=== PATIENT | female | born 1980 | race Caucasian/White ===

== ENCOUNTER 2016-12-31 14:58 | Emergency (ER) | payer SELFPAY ==
[2016-12-31] MEDS ORDERED: ACETAMINOPHEN 325 MG TABLET PO ONE (15:53)
--- NOTE | 2016-12-31 15:53 | ER Document Report ---
ED Medical Screen (RME) - General Chief Complaint: Lower Abdominal Pain Stated Complaint: WEAKNESS Time seen by provider: 15:51 Mode of Arrival: Ambulatory Information source: Patient TRAVEL OUTSIDE OF THE [place] IN LAST 30 DAYS: No - HPI Patient complains to provider of: left sided pelvic pain, nausea, vomiting x 3 days, lightheaded Onset: Other - 3 days Onset/Duration: Gradual Quality of pain: Sharp, Stabbing Severity: Moderate Pain Level: 3 Associated Symptoms: Dizzy/lightheaded, Nausea, Vomiting. denies: Vaginal bleeding Exacerbated by: Denies Relieved by: Denies Notes: 12/31/16 15:52 36-year-old female presents to the emergency room complaining of left-sided sharp stabbing pelvic pain that's been going on for 3 days, associated with nausea and vomiting as well as lightheadedness, she reports a positive home test and a history of ectopic in the past requiring surgery , denies vaginal bleeding, she has been having some clear and whitish vaginal discharge - Related Data Allergies/Adverse Reactions: No Known Allergies Allergy (Verified 12/31/16 15:11) Past Medical History Renal/ Medical History: Denies: Hx Peritoneal Dialysis Physical Exam - Vital signs Vitals: Temp Pulse Resp BP Pulse Ox 98.4 F 88 16 123/66 99 12/31/16 15:13 12/31/16 15:13 12/31/16 15:13 12/31/16 15:13 12/31/16 15:13 Course - Vital Signs Vital signs: Temp Pulse Resp BP Pulse Ox 98.4 F 88 16 123/66 99 12/31/16 15:13 12/31/16 15:13 12/31/16 15:13 12/31/16 15:13 12/31/16 15:13
[2016-12-31 16:34] LABS: ABSOLUTE EOSINOPHILS # (AUTO) 0.1 10^3/uL (0.0-0.6); ABSOLUTE LYMPHOCYTES (AUTO) 1.9 10^3/uL (0.5-4.7); ABSOLUTE MONOCYTES (AUTO) 0.5 10^3/uL (0.1-1.4); ABSOLUTE NEUT (AUTO) 5.4 10^3/uL (1.7-8.2); BASOPHILS % (AUTO) 0.5 % (0-2); EOSINOPHILS % (AUTO) 1.5 % (0-6); HEMOGLOBIN 8.6 g/dL (12.0-15.5); HGB HCT DIFFERENCE -1.2; LYMPHOCYTES % (AUTO) 23.4 % (13-45); MEAN CORPUSCULAR HEMOGLOBIN 20.1 pg (27.0-33.4); MEAN CORPUSCULAR HGB CONC 31.9 g/dL (32.0-36.0); MONOCYTES % (AUTO) 6.9 % (3-13); RED BLOOD COUNT 4.28 10^6/uL (3.72-5.28); RED CELL DISTRIBUTION WIDTH 18.3 % (11.5-14.0); SEGMENTED NEUTROPHILS % (AUTO) 67.7 % (42-78)
[2016-12-31 16:38] LABS: APPEARANCE,URINE SLIGHTLY-CLOUDY; BILIRUBIN,URINE NEGATIVE (NEGATIVE); CALCIUM OXALATE CRYSTALS,URINE RARE /HPF; GLUCOSE, URINE NEGATIVE (NEGATIVE); KETONES,URINE NEGATIVE (NEGATIVE); LEUKOCYTE ESTERASE,URINE NEGATIVE (NEGATIVE); NITRITE,URINE NEGATIVE (NEGATIVE); PROTEIN,URINE NEGATIVE (NEGATIVE); URINE SPECIFIC GRAVITY 1.031
[2016-12-31 16:49] LABS: ALANINE AMINOTRANSFERASE 25 U/L (9-52); ALKALINE PHOSPHATASE 42 U/L (38-126); ANION GAP 11 (5-19); ASPARTATE AMINO TRANSFERASE 26 U/L (14-36); BILIRUBIN,DIRECT 0.1 mg/dL (0.0-0.4); BILIRUBIN,TOTAL 0.3 mg/dL (0.2-1.3); BLOOD UREA NITROGEN 10 mg/dL (7-20); CALCIUM 9.4 mg/dL (8.4-10.2); CARBON DIOXIDE 24 mmol/L (22-30); CHLORIDE 103 mmol/L (98-107); CREATININE RESULT 0.61 mg/dL (0.52-1.25); GLUCOSE 70 mg/dL (75-110); LIPASE 91.4 U/L (23-300); POTASSIUM 5.1 mmol/L (3.6-5.0); SODIUM 137.7 mmol/L (137-145); TOTAL PROTEIN 7.3 g/dL (6.3-8.2)
[2016-12-31 16:51] LABS: MEAN CORPUSCULAR VOLUME 63 fl (80-97)
[2016-12-31 17:08] LABS: ANISOCYTOSIS 1+; BURR CELLS SLIGHT; HYPOCHROMASIA SLIGHT; MICROCYTOSIS 3+; POIKILOCYTOSIS 1+; POLYCHROMASIA SLIGHT
[2016-12-31 17:09] LABS: OVALOCYTES 1+; ROULEAUX SLIGHT; SCHISTOCYTES SLIGHT; TEAR DROP CELLS SLIGHT
--- NOTE | 2016-12-31 18:48 | ER Document Report ---
ED GI/ - General Chief Complaint: Lower Abdominal Pain Stated Complaint: WEAKNESS Time seen by provider: 18:45 Mode of Arrival: Ambulatory Information source: Patient TRAVEL OUTSIDE OF THE [place] IN LAST 30 DAYS: No - HPI Patient complains to provider of: Pelvic pain, Onset: Last week Timing/Duration: Gradual Quality of pain: Achy, Cramping Severity at maximum: Moderate Location: Suprapubic, Pelvis Menstrual period history: Associated symptoms: Nausea Exacerbated by: Denies Relieved by: Denies Similar symptoms previously: Yes Recently seen / treated by doctor: No Notes: 12/31/16 19:09 Patient is a 36-year-old female who presents to the emergency room complaining of lower abdominal pain and cramping that's been going on for the past week or so, she reports positive home test, cannot recall when her last menstrual period was, reports some nausea, no vomiting, no diarrhea, no fever or chills, no urinary symptoms - Related Data Allergies/Adverse Reactions: No Known Allergies Allergy (Verified 12/31/16 15:11) Past Medical History - General Information source: Patient - Social History Smoking Status: Never Smoker Chew tobacco use (# tins/day): No Frequency of alcohol use: None Drug Abuse: None Family History: Reviewed & Not Pertinent Patient has suicidal ideation: No Patient has homicidal ideation: No Renal/ Medical History: Denies: Hx Peritoneal Dialysis Past Surgical History: Reports: Hx Gynecologic Surgery - Immunizations Hx Diphtheria, Pertussis, Tetanus Vaccination: No Review of Systems - Review of Systems Constitutional: No symptoms reported EENT: No symptoms reported Cardiovascular: No symptoms reported Respiratory: No symptoms reported Gastrointestinal: No symptoms reported Genitourinary: See HPI Female Genitourinary: See HPI Musculoskeletal: No symptoms reported Skin: No symptoms reported Hematologic/Lymphatic: No symptoms reported Neurological/Psychological: No symptoms reported -: Yes All other systems reviewed and negative Physical Exam - Vital signs Vitals: Temp Pulse Resp BP Pulse Ox 98.4 F 88 16 123/66 99 12/31/16 15:13 12/31/16 15:13 12/31/16 15:13 12/31/16 15:13 12/31/16 15:13 Interpretation: Normal - General General appearance: Appears well, Alert - HEENT Head: Normocephalic, Atraumatic Eyes: Normal Pupils: PERRL - Respiratory Respiratory status: No respiratory distress Chest status: Nontender Breath sounds: Normal Chest palpation: Normal - Cardiovascular Rhythm: Regular Heart sounds: Normal auscultation Murmur: No - Abdominal Inspection: Normal Distension: No distension Bowel sounds: Normal Tenderness: Nontender Organomegaly: No organomegaly - Back Back: Normal, Nontender - Extremities General upper extremity: Normal inspection, Nontender, Normal color, Normal ROM , Normal temperature General lower extremity: Normal inspection, Nontender, Normal color, Normal ROM , Normal temperature, Normal weight bearing. No: Uma's sign - Neurological Neuro grossly intact: Yes Cognition: Normal Orientation: AAOx4 Bridgette Coma Scale Eye Opening: Spontaneous Bridgette Coma Scale Verbal: Oriented Bridgette Coma Scale Motor: Obeys Commands Bridgette Coma Scale Total: 15 Speech: Normal Motor strength normal: LUE, RUE, LLE, RLE Sensory: Normal - Psychological Associated symptoms: Normal affect, Normal mood - Skin Skin Temperature: Warm Skin Moisture: Dry Skin Color: Normal Course - Re-evaluation Re-evalutation: 12/31/16 19:09 Lab and imaging findings were discussed patient at bedside which are consistent with positive IUP measuring 13 weeks and 5 days, patient was provided with a copy of her ultrasound report and advised to follow-up with MUD JACK OPERATOR within the next week or return if symptoms worsen, patient acknowledges understanding and agreement with this - Vital Signs Vital signs: Temp Pulse Resp BP Pulse Ox 98.4 F 78 16 135/56 H 100 12/31/16 15:13 12/31/16 19:04 12/31/16 19:04 12/31/16 19:04 12/31/16 19:04 - Laboratory Result Diagrams: 12/31/16 15:55 12/31/16 15:55 Laboratory results interpreted by me: 12/31/16 12/31/16 12/31/16 15:55 15:55 15:55 Hgb 8.6 L Hct 27.0 L MCV 63 L MCH 20.1 L MCHC 31.9 L RDW 18.3 H Potassium 5.1 H Glucose 70 L Beta HCG, Quant 31605.00 H Urine Blood SMALL H Urine Urobilinogen 4.0 H - Diagnostic Test Radiology reviewed: Image reviewed, Reports reviewed Discharge - Discharge Clinical Impression: Pelvic pain Qualifiers: Weeks of gestation: 13 weeks Qualified Code(s): Z3A.13 - 13 weeks gestation of Condition: Stable Disposition: HOME, SELF-CARE Instructions: [facility], Pelvic Pain in ([facility]), Pelvic Pain in and Round Ligament Pain ([facility]) Additional Instructions: Follow up with your primary care provider and MUD JACK OPERATOR in one to 2 days. Return to the emergency room immediately if symptoms worsen or any additional concerns. Forms: Return to Work
[2016-12-31 19:05] VITALS: BP 135/56
[2017-01-01 15:26] LABS: PATH REVIEW PATHOLOGIST REVIEWED
== END 2016-12-31 19:06 | disposition home or self-care (01) ==
LOC: ER 14:58
DX: O26.891 Other specified pregnancy related conditions, first trimester (principal); R10.2 Pelvic and perineal pain; R11.0 Nausea; Z3A.13 13 weeks gestation of pregnancy
CPT/HCPCS: 36415; 76817; 80053; 81001; 83690; 84702; 85025; 87086; 87088; 93976; 99284

== ENCOUNTER 2017-01-07 19:04 | Emergency (ER) | payer SELFPAY ==
--- NOTE | 2017-01-07 23:03 | ER Document Report ---
ED GI/ - General Chief Complaint: Pelvic Pain Stated Complaint: PELVIC PAIN Time seen by provider: 23:03 Mode of Arrival: Ambulatory Information source: Patient TRAVEL OUTSIDE OF THE [place] IN LAST 30 DAYS: No - HPI Patient complains to provider of: Abdominal pain, Pelvic pain, Onset: This morning Timing/Duration: Constant Quality of pain: Achy, Pressure Severity at maximum: Moderate Severity in ED: Moderate Pain Level: 3 Location: Epigastric, Right flank, Suprapubic Vaginal bleeding (Compared to normal period): None Menstrual period history: Associated symptoms: None Exacerbated by: Denies Relieved by: Denies Similar symptoms previously: Yes Recently seen / treated by doctor: Yes Notes: 01/08/17 00:20 Patient is a 37-year-old female presenting to the emergency room complaining of abdominal pain, patient reports being approximately 14 weeks , and in fact was seen in this emergency room exactly one week ago and diagnosed with and pelvic pain, at that time ultrasound showed her to be 13 weeks and 5 days, she has not yet received any care, she denies any vaginal bleeding, pain is pressure-like in nature, located in the epigastric and suprapubic regions as well as the right flank, it is constant, dull and achy, there is no intermittent cramping, no vaginal discharge, no nausea or vomiting, no fever chills - Related Data Allergies/Adverse Reactions: No Known Allergies Allergy (Verified 01/07/17 19:13) Past Medical History - General Information source: Patient - Social History Smoking Status: Unknown if Ever Smoked Family History: Reviewed & Not Pertinent Patient has suicidal ideation: No Patient has homicidal ideation: No Renal/ Medical History: Denies: Hx Peritoneal Dialysis Past Surgical History: Reports: Hx Gynecologic Surgery - Immunizations Hx Diphtheria, Pertussis, Tetanus Vaccination: No Review of Systems - Review of Systems Constitutional: No symptoms reported EENT: No symptoms reported Cardiovascular: No symptoms reported Respiratory: No symptoms reported Gastrointestinal: See HPI Genitourinary: No symptoms reported Female Genitourinary: See HPI Musculoskeletal: No symptoms reported Skin: No symptoms reported Hematologic/Lymphatic: No symptoms reported Neurological/Psychological: No symptoms reported -: Yes All other systems reviewed and negative Physical Exam - Vital signs Vitals: Temp Pulse Resp BP Pulse Ox 98.4 F 79 12 118/58 L 99 01/07/17 19:13 01/07/17 19:13 01/07/17 19:13 01/07/17 19:13 01/07/17 19:13 Interpretation: Normal - General General appearance: Appears well, Alert - HEENT Head: Normocephalic, Atraumatic Eyes: Normal Pupils: PERRL - Respiratory Respiratory status: No respiratory distress Chest status: Nontender Breath sounds: Normal Chest palpation: Normal - Cardiovascular Rhythm: Regular Heart sounds: Normal auscultation Murmur: No - Abdominal Inspection: Normal Distension: No distension Bowel sounds: Normal Tenderness: Tender - Epigastric and suprapubic Organomegaly: No organomegaly - Back Back: Normal, Nontender - Extremities General upper extremity: Normal inspection, Nontender, Normal color, Normal ROM , Normal temperature General lower extremity: Normal inspection, Nontender, Normal color, Normal ROM , Normal temperature, Normal weight bearing. No: Uma's sign - Neurological Neuro grossly intact: Yes Cognition: Normal Orientation: AAOx4 Weston Coma Scale Eye Opening: Spontaneous Bridgette Coma Scale Verbal: Oriented Weston Coma Scale Motor: Obeys Commands Weston Coma Scale Total: 15 Speech: Normal Motor strength normal: LUE, RUE, LLE, RLE Sensory: Normal - Psychological Associated symptoms: Normal affect, Normal mood - Skin Skin Temperature: Warm Skin Moisture: Dry Skin Color: Normal Course - Re-evaluation Re-evalutation: 01/08/17 00:22 Bedside ultrasound shows good movement and heart rate, laboratory evaluation is unremarkable except for anemia consistent with previous labs one week ago and discussed with patient at bedside, she was advised to take Tylenol as needed for pain, follow-up with PLACEMENT OFFICER in the next week, return if symptoms worsen, patient acknowledges understanding and agreement with this plan - Vital Signs Vital signs: Temp Pulse Resp BP Pulse Ox 98.4 F 80 20 121/66 98 01/07/17 19:13 01/08/17 00:09 01/08/17 00:09 01/08/17 00:09 01/08/17 00:09 - Laboratory Result Diagrams: 01/07/17 22:35 01/07/17 22:35 Laboratory results interpreted by me: 01/07/17 01/07/17 01/07/17 22:35 22:35 22:40 Hgb 8.6 L Hct 27.3 L MCV 64 L MCH 20.1 L MCHC 31.7 L RDW 19.3 H Beta HCG, Quant 52704.00 H Urine Urobilinogen 4.0 H Discharge - Discharge Clinical Impression: Pelvic pain Qualifiers: Weeks of gestation: 14 weeks Qualified Code(s): Z3A.14 - 14 weeks gestation of Condition: Stable Disposition: HOME, SELF-CARE Instructions: [facility], Pelvic Pain ([facility]), Pelvic Pain in ([facility]) , Pelvic Pain in and Round Ligament Pain ([facility]) Additional Instructions: Tylenol as needed for pain. Follow-up with an PLACEMENT OFFICER within the next week. Return to the emergency room immediately if symptoms worsen or any additional concerns.
[2017-01-07 23:09] LABS: ABSOLUTE BASOPHILS # (AUTO) 0.1 10^3/uL (0.0-0.2); ABSOLUTE EOSINOPHILS # (AUTO) 0.2 10^3/uL (0.0-0.6); ABSOLUTE LYMPHOCYTES (AUTO) 2.5 10^3/uL (0.5-4.7); ABSOLUTE MONOCYTES (AUTO) 0.7 10^3/uL (0.1-1.4); ABSOLUTE NEUT (AUTO) 6.1 10^3/uL (1.7-8.2); BASOPHILS % (AUTO) 0.8 % (0-2); HEMATOCRIT 27.3 % (36.0-47.0); HEMOGLOBIN 8.6 g/dL (12.0-15.5); HGB HCT DIFFERENCE -1.5; LYMPHOCYTES % (AUTO) 26.2 % (13-45); MEAN CORPUSCULAR HEMOGLOBIN 20.1 pg (27.0-33.4); MEAN CORPUSCULAR HGB CONC 31.7 g/dL (32.0-36.0); MEAN CORPUSCULAR VOLUME 64 fl (80-97); MONOCYTES % (AUTO) 7.3 % (3-13); RED BLOOD COUNT 4.29 10^6/uL (3.72-5.28); RED CELL DISTRIBUTION WIDTH 19.3 % (11.5-14.0); SEGMENTED NEUTROPHILS % (AUTO) 63.7 % (42-78); WHITE BLOOD COUNT 9.5 10^3/uL (4.0-10.5)
[2017-01-07 23:13] LABS: ALANINE AMINOTRANSFERASE 23 U/L (9-52); ALKALINE PHOSPHATASE 44 U/L (38-126); ANION GAP 10 (5-19); ASPARTATE AMINO TRANSFERASE 24 U/L (14-36); BILIRUBIN,DIRECT 0.1 mg/dL (0.0-0.4); BILIRUBIN,TOTAL 0.2 mg/dL (0.2-1.3); BLOOD UREA NITROGEN 9 mg/dL (7-20); CALCIUM 9.6 mg/dL (8.4-10.2); CARBON DIOXIDE 25 mmol/L (22-30); CHLORIDE 103 mmol/L (98-107); CREATININE RESULT 0.64 mg/dL (0.52-1.25); GLUCOSE 86 mg/dL (75-110); LIPASE 127.5 U/L (23-300); POTASSIUM 4.6 mmol/L (3.6-5.0); SODIUM 138.3 mmol/L (137-145); TOTAL PROTEIN 7.3 g/dL (6.3-8.2)
[2017-01-07 23:13] LABS: AMORPHOUS SEDIMENT,URINE TRACE /HPF; APPEARANCE,URINE CLOUDY; BILIRUBIN,URINE NEGATIVE (NEGATIVE); GLUCOSE, URINE NEGATIVE (NEGATIVE); KETONES,URINE NEGATIVE (NEGATIVE); LEUKOCYTE ESTERASE,URINE NEGATIVE (NEGATIVE); NITRITE,URINE NEGATIVE (NEGATIVE); PROTEIN,URINE NEGATIVE (NEGATIVE); URINE SPECIFIC GRAVITY 1.018
[2017-01-07] MEDS ORDERED: ACETAMINOPHEN 325 MG TABLET PO ONE (23:29)
[2017-01-07 23:32] LABS: ANISOCYTOSIS 2+; HYPOCHROMASIA SLIGHT; MICROCYTOSIS 3+; POLYCHROMASIA SLIGHT
[2017-01-07 23:33] LABS: OVALOCYTES SLIGHT; POIKILOCYTOSIS 1+; ROULEAUX SLIGHT; SCHISTOCYTES SLIGHT; TEAR DROP CELLS SLIGHT
[2017-01-08 00:10] VITALS: BP 121/66
== END 2017-01-08 00:09 | disposition home or self-care (01) ==
LOC: ER 19:04
DX: O26.892 Other specified pregnancy related conditions, second trimester (principal); R10.2 Pelvic and perineal pain; R10.13 Epigastric pain; O99.012 Anemia complicating pregnancy, second trimester; D64.9 Anemia, unspecified; Z3A.14 14 weeks gestation of pregnancy
CPT/HCPCS: 36415; 80053; 81001; 83690; 84702; 85025; 99284

== ENCOUNTER 2017-04-16 20:07 | Outpatient (CLI) | payer BC, MEDICAID ==
[2017-04-16 20:44] LABS: APPEARANCE,URINE CLEAR; BILIRUBIN,URINE NEGATIVE (NEGATIVE); GLUCOSE, URINE NEGATIVE (NEGATIVE); KETONES,URINE NEGATIVE (NEGATIVE); LEUKOCYTE ESTERASE,URINE NEGATIVE (NEGATIVE); NITRITE,URINE NEGATIVE (NEGATIVE); PROTEIN,URINE NEGATIVE (NEGATIVE); URINE SPECIFIC GRAVITY 1.002; UROBILINOGEN,URINE NEGATIVE mg/dL (<2.0)
[2017-04-16 20:48] LABS: URINE BARBITURATES SCREEN NEGATIVE; URINE METHADONE SCREEN NEGATIVE; URINE OPIATES LOW NEGATIVE; URINE PHENCYCLIDINE SCREEN NEGATIVE
[2017-04-16 21:38] LABS: ABSOLUTE EOSINOPHILS # (AUTO) 0.2 10^3/uL (0.0-0.6); ABSOLUTE LYMPHOCYTES (AUTO) 1.5 10^3/uL (0.5-4.7); ABSOLUTE MONOCYTES (AUTO) 0.6 10^3/uL (0.1-1.4); BASOPHILS % (AUTO) 0.4 % (0-2); EOSINOPHILS % (AUTO) 2.3 % (0-6); HEMATOCRIT 24.2 % (36.0-47.0); HGB HCT DIFFERENCE -0.5; LYMPHOCYTES % (AUTO) 18.4 % (13-45); MEAN CORPUSCULAR HEMOGLOBIN 22.4 pg (27.0-33.4); MEAN CORPUSCULAR HGB CONC 32.5 g/dL (32.0-36.0); MEAN CORPUSCULAR VOLUME 69 fl (80-97); MONOCYTES % (AUTO) 7.4 % (3-13); RED CELL DISTRIBUTION WIDTH 17.4 % (11.5-14.0); SEGMENTED NEUTROPHILS % (AUTO) 71.5 % (42-78); WHITE BLOOD COUNT 8.4 10^3/uL (4.0-10.5)
[2017-04-16 21:41] LABS: HEMOGLOBIN 7.9 g/dL (12.0-15.5)
--- NOTE | 2017-04-16 22:09 | RADIOLOGY REPORT (SQ) ---
EXAM DESCRIPTION: U/S OB LIMITED COMPLETED DATE/TIME: 04/16/2017 9:52 pm REASON FOR STUDY: cervical length R/O placenta abruption COMPARISON: None. TECHNIQUE: Limited transabdominal grayscale ultrasound for evaluation of specific requested obstetri tarik parameters. LIMITATIONS: None. FINDINGS: CERVICAL LENGTH: 3.4 cm Closed. FHR: 120 beats per minute. PRESENTATION: Breech. OTHER: Anterior placenta. No evidence for abruption. IMPRESSION: LIMITED OBSTETRICAL ULTRASOUND WITH MEASURED PARAMETERS DELINEATED ABOVE. Trimester of : Third trimester - 28 weeks to delivery. TECHNICAL DOCUMENTATION: JOB ID: [id number] [employer]- All Rights Reserved
[2017-04-16 23:38] LABS: TOTAL RBC COUNT 2073; TYPE IN FILE? TYPE NOT IN FILE; VOL OF FETOMATERNAL HEMORRHAGE 0 ML (0)
== END 2017-04-16 22:50 | disposition home or self-care (01) ==
LOC: LC 20:07
PROVIDERS: ATTEND Specialist
PROC: 4A1HXCZ Monitoring of Products of Conception, Cardiac Rate, External Approach (ICD-10-PCS; principal; 2017-04-16)
DX: O47.03 False labor before 37 completed weeks of gestation, third trimester (principal); Z3A.29 29 weeks gestation of pregnancy
CPT/HCPCS: 36415; 76815; 80307; 81001; 85025; 85384; 85460; 86900; 86901

== ENCOUNTER 2017-04-25 18:31 | Outpatient (CLI) | payer BC, MEDICAID ==
[2017-04-25 19:13] LABS: AMNISURE (ROM) NEGATIVE (NEGATIVE)
[2017-04-25 19:25] LABS: APPEARANCE,URINE CLEAR; BILIRUBIN,URINE NEGATIVE (NEGATIVE); GLUCOSE, URINE NEGATIVE (NEGATIVE); KETONES,URINE NEGATIVE (NEGATIVE); LEUKOCYTE ESTERASE,URINE TRACE (NEGATIVE); NITRITE,URINE NEGATIVE (NEGATIVE); PROTEIN,URINE NEGATIVE (NEGATIVE); URINE SPECIFIC GRAVITY 1.003; UROBILINOGEN,URINE NEGATIVE mg/dL (<2.0)
[2017-04-25 19:40] LABS: URINE BARBITURATES SCREEN NEGATIVE; URINE METHADONE SCREEN NEGATIVE; URINE OPIATES LOW NEGATIVE; URINE PHENCYCLIDINE SCREEN NEGATIVE
== END 2017-04-25 20:25 | disposition home or self-care (01) ==
LOC: LC 18:31
PROVIDERS: ATTEND Obstetrics & Gynecology
PROC: 4A1HXCZ Monitoring of Products of Conception, Cardiac Rate, External Approach (ICD-10-PCS; principal; 2017-04-25)
DX: O47.03 False labor before 37 completed weeks of gestation, third trimester (principal); O09.523 Supervision of elderly multigravida, third trimester; Z3A.30 30 weeks gestation of pregnancy
CPT/HCPCS: 80307; 81001; 84112

== ENCOUNTER 2017-06-11 06:29 | Observation (INO) | payer BC, MEDICAID ==
[2017-06-11] MEDS ORDERED: RINGERS SOLUTION,LACTATED 1,000 ML IV PRN (06:38)
[2017-06-11 07:17] LABS: AMNISURE (ROM) NEGATIVE (NEGATIVE)
[2017-06-11 07:27] LABS: ABSOLUTE EOSINOPHILS # (AUTO) 0.1 10^3/uL (0.0-0.6); ABSOLUTE LYMPHOCYTES (AUTO) 0.7 10^3/uL (0.5-4.7); ABSOLUTE MONOCYTES (AUTO) 0.5 10^3/uL (0.1-1.4); ABSOLUTE NEUT (AUTO) 4.1 10^3/uL (1.7-8.2); BASOPHILS % (AUTO) 0.6 % (0-2); EOSINOPHILS % (AUTO) 1.9 % (0-6); HEMATOCRIT 30.3 % (36.0-47.0); HEMOGLOBIN 10.1 g/dL (12.0-15.5); LYMPHOCYTES % (AUTO) 13.5 % (13-45); MEAN CORPUSCULAR HEMOGLOBIN 25.3 pg (27.0-33.4); MEAN CORPUSCULAR HGB CONC 33.2 g/dL (32.0-36.0); MEAN CORPUSCULAR VOLUME 76 fl (80-97); MONOCYTES % (AUTO) 9.5 % (3-13); RED BLOOD COUNT 3.97 10^6/uL (3.72-5.28); RED CELL DISTRIBUTION WIDTH 32.8 % (11.5-14.0); SEGMENTED NEUTROPHILS % (AUTO) 74.5 % (42-78); WHITE BLOOD COUNT 5.5 10^3/uL (4.0-10.5)
[2017-06-11 07:36] LABS: URINE BARBITURATES SCREEN NEGATIVE; URINE METHADONE SCREEN NEGATIVE; URINE OPIATES LOW NEGATIVE; URINE PHENCYCLIDINE SCREEN NEGATIVE
[2017-06-11 07:50] LABS: APPEARANCE,URINE SLIGHTLY-CLOUDY; BILIRUBIN,URINE NEGATIVE (NEGATIVE); GLUCOSE, URINE NEGATIVE (NEGATIVE); KETONES,URINE TRACE mg/dL (NEGATIVE); LEUKOCYTE ESTERASE,URINE NEGATIVE (NEGATIVE); NITRITE,URINE NEGATIVE (NEGATIVE); PROTEIN,URINE 30 mg/dL (NEGATIVE); URINE SPECIFIC GRAVITY 1.026
[2017-06-11 07:56] LABS: HYPOCHROMASIA 1+; MICROCYTOSIS SLIGHT; POLYCHROMASIA SLIGHT
[2017-06-11 07:57] LABS: ANISOCYTOSIS 4+
[2017-06-11] MEDS ORDERED: EPHEDRINE SULFATE INJ 50 MG/1 ML AMPULE ONE (10:09)
[2017-06-11] MEDS ORDERED: TERBUTALINE SULFATE INJ/PF 1 MG/1 ML SDV ONE (10:09)
[2017-06-11] MEDS ORDERED: BUPIVACAINE HCL 0.25 % INJ/PF (2.5 MG/1 ML) 30 ML VIAL ONE (10:10)
[2017-06-11] MEDS ORDERED: FENTANYL/BUPIVACAINE/NS/PF 200 MCG/100 ML RTUINJ EPI ONE (10:10)
[2017-06-11] MEDS ORDERED: LIDOCAINE 2% INJ-PF (20 MG/ML) 10 ML AMPUL ONE (11:05)
--- NOTE | 2017-06-11 13:32 | L&D Progress Notes ---
PROGRESS NOTES Datetime Report Generated by CPN: 06/11/2017 13:32 PROGRESS NOTE Procedures: External Version Vital Signs : Reviewed Comment: Attempted ECV with forward roll-unsuccessful. monitored and attempted backward roll. Again unsuccessful. Will monitor and await epidural to waer off. VAGINAL EXAM Dilatation: 1 Effacement: 50 Station: -3 SIGNATURE SIGNATURE: [id number] Signature: with User ID: [email or web address]
[2017-06-11] MEDS ORDERED: CEFAZOLIN SODIUM 2 GM in DEXTROSE 5%-WATER 50 ML IV PRN (16:06)
[2017-06-11] MEDS ORDERED: PENICILLIN G POTASSIUM 5,000,000 UNIT in DEXTROSE 5%-WATER 100 ML IV ONE (16:37)
[2017-06-11] MEDS ORDERED: CEFAZOLIN INJ 1 GM VIAL INJ PRN (17:59)
[2017-06-11] MEDS ORDERED: GLYCERIN/WITCH HAZEL LEAF 1 EACH MED..PAD TP PRN (19:01)
[2017-06-11] MEDS ORDERED: PENICILLIN G POTASSIUM 2,500,000 UNIT in DEXTROSE 5%-WATER 50 ML IV SCH (20:38)
[2017-06-11] MEDS ORDERED: ZOLPIDEM TARTRATE 5 MG TABLET ONE (21:23)
[2017-06-11] MEDS ORDERED: ZOLPIDEM TARTRATE 5 MG TABLET PO ONE (22:30)
--- NOTE | 2017-06-12 07:32 | DISCHARGE SUMMARY E ---
Discharge Summary NAME: STEFFANIE CORRAL : 1980 AGE: 37Y ADMITTED: 06/11/2017 DISCHARGED: 06/12/2017 INDICATIONS FOR ADMISSION: The patient is a 37-year-old G7, P4 who was brought in at 36 weeks and 6 days for attempted external cephalic version for breech. She underwent attempted external cephalic version under epidural anesthesia, but this was not successful. After the procedure, the patient had approximately 2 hours of some tachycardia. Due to this, she was observed overnight. After that initial 2 hours of tachycardia which had good variability throughout, the heart tones returned to normal and had excellent variability throughout. The patient's cervix had been 1, 50 and -3 on admission and was essentially unchanged. She did have some bleeding and cramping prior to the procedure before any cervical exams, but this did not persist afterwards. She did have some soreness after sleeping in the hospital bed and on her abdominal wall in the night. She did have some mild musculoskeletal soreness on the morning of discharge and she also complained of hemorrhoids. She was given discharge prescriptions for Flexeril 10 mg 1 p.o. t.i.d. p.r.n. #30 with no refills and Anusol HC applied to affected area t.i.d. p.r.n. I gave her strict bleeding and labor precautions as well as SROM precautions. She will immediately follow up for decreased movement. She has followup in the clinic this Friday and we will schedule a primary section at 39 weeks for breech. DICTATING PHYSICIAN: TAVO SANTIZO M.D. [id number] PHY#: [id number] ID: [id number] JOB#: [id number] ACCT: [id number] cc:TAVO SANTIZO M.D. >
== END 2017-06-12 08:00 | disposition home or self-care (01) ==
LOC: LC 06:29 → INTOOBSV 15:53 → LR 15:53
PROVIDERS: ADMIT Specialist; ATTEND Specialist
PROC: 10S0XZZ Reposition Products of Conception, External Approach (ICD-10-PCS; principal; 2017-06-11)
DX: O32.1XX0 Maternal care for breech presentation, not applicable or unspecified (principal); O76 Abnormality in fetal heart rate and rhythm complicating labor and delivery; O46.93 Antepartum hemorrhage, unspecified, third trimester; O22.43 Hemorrhoids in pregnancy, third trimester; Z3A.36 36 weeks gestation of pregnancy
CPT/HCPCS: 84112; 86900; 86901; 36415; 86850; 85025; 81005; 86592; 80307; 59412; G0378 ×2; G0379; Q0114; J3490 ×3; J3105

== ENCOUNTER 2017-06-26 05:00 | Inpatient (IN) | payer BC, MEDICAID ==
[2017-06-24 11:09] LABS: ABSOLUTE EOSINOPHILS # (AUTO) 0.1 10^3/uL (0.0-0.6); ABSOLUTE LYMPHOCYTES (AUTO) 1.2 10^3/uL (0.5-4.7); ABSOLUTE MONOCYTES (AUTO) 0.5 10^3/uL (0.1-1.4); ABSOLUTE NEUT (AUTO) 5.8 10^3/uL (1.7-8.2); BASOPHILS % (AUTO) 0.5 % (0-2); EOSINOPHILS % (AUTO) 1.2 % (0-6); HEMATOCRIT 34.7 % (36.0-47.0); HEMOGLOBIN 11.4 g/dL (12.0-15.5); HGB HCT DIFFERENCE -0.5; LYMPHOCYTES % (AUTO) 15.3 % (13-45); MEAN CORPUSCULAR HEMOGLOBIN 25.9 pg (27.0-33.4); MEAN CORPUSCULAR HGB CONC 32.8 g/dL (32.0-36.0); MEAN CORPUSCULAR VOLUME 79 fl (80-97); MONOCYTES % (AUTO) 6.9 % (3-13); RED BLOOD COUNT 4.41 10^6/uL (3.72-5.28); RED CELL DISTRIBUTION WIDTH 31.3 % (11.5-14.0); SEGMENTED NEUTROPHILS % (AUTO) 76.1 % (42-78); WHITE BLOOD COUNT 7.6 10^3/uL (4.0-10.5)
[2017-06-24 11:33] LABS: APPEARANCE,URINE CLEAR; BILIRUBIN,URINE NEGATIVE (NEGATIVE); GLUCOSE, URINE NEGATIVE (NEGATIVE); KETONES,URINE NEGATIVE (NEGATIVE); LEUKOCYTE ESTERASE,URINE TRACE (NEGATIVE); NITRITE,URINE NEGATIVE (NEGATIVE); PROTEIN,URINE NEGATIVE (NEGATIVE); URINE SPECIFIC GRAVITY 1.018
[2017-06-24 11:35] LABS: ANISOCYTOSIS 4+; MICROCYTOSIS SLIGHT
[2017-06-24 11:36] LABS: HYPOCHROMASIA 1+; OVALOCYTES 1+; POIKILOCYTOSIS 1+; POLYCHROMASIA SLIGHT
[2017-06-24 12:00] LABS: URINE BARBITURATES SCREEN NEGATIVE; URINE METHADONE SCREEN NEGATIVE; URINE OPIATES LOW NEGATIVE; URINE PHENCYCLIDINE SCREEN NEGATIVE
[2017-06-26] MEDS ORDERED: CEFAZOLIN 2 GM/D5W RTU 2 GM/50 ML RTUPB IV PRN (06:13)
[2017-06-26] MEDS: LACTATED RINGERS 1000 ML IV PRN ×6 (06:15→20:58)
[2017-06-26] MEDS ORDERED: RINGERS SOLUTION,LACTATED 1,000 ML IV ONE (06:15)
[2017-06-26] MEDS ORDERED: FENTANYL CITRATE INJ/PF 100 MCG/2 ML AMPUL ONE ×2 (06:51→10:27)
[2017-06-26] MEDS ORDERED: OXYTOCIN 10 UNIT/ML VIAL ONE (06:51)
[2017-06-26] MEDS ORDERED: MIDAZOLAM 2 MG/2 ML INJ ONE (06:52)
[2017-06-26] MEDS ORDERED: OXYTOCIN/NORMAL SALINE 20 UNIT/1,000 ML RTUINJ ONE ×2 (06:52→11:05)
[2017-06-26] MEDS ORDERED: ONDANSETRON HCL INJ/PF 4 MG/2 ML SDV ONE (06:52)
[2017-06-26] MEDS ORDERED: EPHEDRINE SULFATE INJ 50 MG/1 ML AMPULE ONE (06:52)
[2017-06-26] MEDS: MISOPROSTOL 0.2 MG TABLET ONE ×2 (08:18→08:25)
[2017-06-26] MEDS ORDERED: PROMETHAZINE HCL INJ 25 MG/1 ML VIAL IV PRN ×2 (08:37→09:35)
[2017-06-26] MEDS ORDERED: FENTANYL CITRATE INJ/PF 100 MCG/2 ML AMPUL IV PRN ×3 (08:37)
[2017-06-26] MEDS ORDERED: MEPERIDINE HCL/PF INJ 25 MG/1 ML DISP.SYRIN IV PRN (08:37)
[2017-06-26] MEDS ORDERED: DIPHENHYDRAMINE HCL 50 MG/ML VIAL IV PRN (08:37)
[2017-06-26] MEDS ORDERED: NALBUPHINE HCL INJ 10 MG/1 ML AMPULE IM ONE (08:38)
[2017-06-26] MEDS ORDERED: NALBUPHINE HCL INJ 10 MG/1 ML AMPULE IM PRN (08:44)
[2017-06-26] MEDS ORDERED: OXYCODONE-ACETAMINOPHEN 5-325 MG TABLET PO PRN ×2 (09:35)
[2017-06-26] MEDS ORDERED: DIPH/PERTUSS(ACELL)/TETANUS VAC/PF 0.5 ML SYR (>=10YO) IM PRN (09:35)
[2017-06-26] MEDS ORDERED: HYDROMORPHONE HCL INJ/PF 2 MG/ML AMPULE IV PRN (09:35)
[2017-06-26] MEDS ORDERED: MEASLES,MUMPS&RUBELLA VACC/PF 0.5 ML VIAL SUBCUT PRN (09:35)
[2017-06-26] MEDS ORDERED: ACETAMINOPHEN 100 ML IV PRN (09:35)
[2017-06-26] MEDS ORDERED: SIMETHICONE 80 MG TAB.CHEW PO PRN (09:35)
[2017-06-26] MEDS ORDERED: OXYTOCIN/NORMAL SALINE 20 UNIT/1,000 ML RTUINJ IV PRN (09:35)
[2017-06-26] MEDS ORDERED: NALBUPHINE HCL INJ 10 MG/1 ML AMPULE ONE (09:37)
--- NOTE | 2017-06-26 09:43 | Brief Operative Note ---
BRIEF OPERATIVE REPORT DATE OF SURGERY: 06/26/17 TIME OF SURGERY: 09:00 PREOPERATIVE DIAGNOSIS: Breech with failed ECV, 39+0ega, , Undesired Fertility POSTOPERATIVE DIAGNOSIS: MIL - delivered SURGEON: ANTONIO BLAIR FINDINGS: VFI delivered from Bipin breech presentation, Time of 08, APgars 9/9, Weight 7#2oz, remnant of Left fallopian tube clamped times two with Filschie, Right fallopian tube clamped filschie x 2, normal ovaries, normal appearing right tube, IVF 2100ml, UOP 170ml COMPLICATIONS: None ESTIMATED BLOOD LOSS: 600ml TISSUE REMOVED OR ALTERED: placenta and cord not sent to pathology TECHNICAL PROCEDURE: Primary C/S with BTL
--- NOTE | 2017-06-26 09:47 | PDOC DELIVERY SUMMARY ---
Delivery Summary - Maternal Hx : VII Hx Para: IV Hx # Term Pregnancies: 4 Hx # Pregnancies: 0 Hx Total # of Abortions (Sponateous & Elective): 1 Number of Living Children: 4 LOVE: 07/03/17 Gestational Age: 39+0 Risk Factors: Other - Breech failed version Ruptured Membranes: AROM Time of Rupture: 08:25 Fluids: Clear - Delivery Presentation: Breech Heart Rate Monitoring: Done Pre-Operatively Uterine Contraction Monitoring: External Support Person Present: Yes Location: OR : Scheduled Placenta: Within Normal Limits Nuchal Cord: No Delivery of Placenta Date: 06/26/17 Delivery of Placenta Time: 08:26 - Medications Type of Anesthesia:: Spinal - Delivery Medications Delivery Meds: Cytotec 1000mcg Per Rectum/Vagina - Assess and Care Baby 1 Female Delivery of Infant Date: 06/26/17 Delivery of Infant Time: 08:26 at 1 minute: 9 at 5 minutes: 9 Preprinted Number On Band: [id number] Skin to Skin: No To Nursery At: 08:35 Mode of Transport: Bassinet Delivery Weight: 3245 kg Infant Delivery Length: 19 in - Delivery Personnel Solar Panel Installer: DR FELIPE Noguera RN: MARISSA IVERSON RN: KRISTINA HAYS MD: ATNONIO BLAIR
[2017-06-26] MEDS ORDERED: KETOROLAC TROMETHAMINE INJ/PF 30 MG/1 ML SDV IV ONE (10:00)
[2017-06-26] MEDS ORDERED: ACETAMINOPHEN 100 ML IV ONE (10:27)
--- NOTE | 2017-06-26 10:56 | Operative Report ---
Operative Report DATE OF SURGERY: 06/26/17 PREOPERATIVE DIAGNOSIS: Breech with failed ECV, 39+0ega, , Undesired Fertility POSTOPERATIVE DIAGNOSIS: MIL - delivered OPERATION: Primary C/S with BTL SURGEON: ANTONIO BLAIR ANESTHESIA: Spinal TISSUE REMOVED OR ALTERED: placenta and cord not sent to pathology ESTIMATED BLOOD LOSS: 600ml INTRAOPERATIVE FINDINGS: VFI delivered from Bipin breech presentation, Time of 0826, APgars 9/9, Weight 7#2oz, remnant of Left fallopian tube clamped times two with Filschie, Right fallopian tube clamped filschie x 2, normal ovaries, normal appearing right tube, IVF 2100ml, UOP 170ml PROCEDURE: Anesthesia provider: [Rafi GAFFNEY, Jadiel Huynh CRNA] Urine output: [170ml] IV fluids: [2100ml] Indications: [37yo at 39+0ega presents for Primary Section for breech presentation. ECV attempted at approximately 37wks but was unsuccessful. She had undesired fertility and desires permanent tubal sterilization. She is 100% sure that she has completed childbearing. The risks , benefits, alternatives were reviewed and the patient desires to proceed with planned procedures.] Procedure: The patient was taken to the operating room where spinal anesthesia was obtained and found to be adequate. She was then prepped and draped in the normal sterile fashion and placed in the dorsal supine position with a leftward tilt. A Pfannenstiel skin incision was then made and carried through to the underlying layers of the fascia with the scalpel. The fascia was incised in the midline and the incision extended laterally with the Wood scissors. The superior aspect of the fascial incision was then grasped with Antwan clamps elevated and the underlying rectus muscles dissected off [bluntly]. Attention was then turned to the inferior aspect of the fascial incision which in a similar fashion was grasped, tented up with Jaden clamps, and the rectus muscles dissected off [bluntly]. The rectus muscles were then in the midline and the peritoneum at the amount identified and entered [bluntly]. The peritoneal incision was then extended superiorly and inferiorly with good visualization of the bladder. The bladder blade was inserted and the vesicouterine peritoneum identified grasped with Lebanese pickups and entered sharply with the Metzenbaum scissors. This incision was then extended laterally with the Metzenbaum scissors and a bladder flap created digitally. The bladder blade was then reinserted and the lower uterine segment incised in a transverse fashion with the scalpel. The uterine incision was then extended bluntly. The bladder blade was removed and the infant was delivered from bipin breech presentation in the usual fashion atraumatically. The nose and mouth were suctioned and the cord doubly clamped and cut. And the infant was handed off to waiting pediatricians. The placenta was then delivered spontaneously and the uterus exteriorized and cleared of all clots and debris. The uterine incision was then repaired with 1- 0 Vicryl in a running locked fashion. A second layer of the same suture was used to obtain hemostasis via imbrication of the initial layer. The bladder flap was then repaired with 3-0 chromic in a running fashion. The uterus was returned to the patient's abdomen and Interceed was placed overlying the uterine incision to prevent adhesions. The gutters were cleared of all clots and debris. All operative sites were noted to be hemostatic. The fascia was reapproximated with 0 Vicryl in a running fashion from each lateral edge to the midline. The skin was closed with 3-0 Monocryl in a running subcuticular fashion with overlying Dermabond for additional dressing as well as wound closure. The patient tolerated the procedure well. Sponge lap needle and instrument counts are correct times two. 2 g of Ancef were given prior to skin incision. The patient was taken to the recovery area awake and in stable condition.
[2017-06-26] MEDS: DOCUSATE SODIUM 100 MG CAPSULE PO SCH ×2 (11:48→16:57)
[2017-06-26] MEDS: PRENATAL VITAMIN W-O CA NO5/FE FUMARATE/FA CAPSULE PO SCH (11:48)
--- NOTE | 2017-06-26 12:05 | Admission Physical ---
Datetime Report Generated by CPN: 06/26/2017 12:04 CURRENT ADMISSION Hx Assessment: The History has been Reviewed and is Current Chief Complaint: Other Chief Complaint Other: breech presentation with desire for ECV Admit Impression- Other: Breech presentation with desire for ecv Admit Plan: Observation/Evaluation Admit Plan- Other: plan ecv ALLERGIES Medication Allergies: Yes Medication Allergies: Penicillins/Rash (06/26/2017); morphine/"Sickness x 4 d (06/20/2017) Medication Allergies: Penicillins (06/11/2017) Medication Allergies: Penicillins (04/25/2017) Medication Allergies: No Known Allergies (04/16/2017) Medication Allergies: No Known Allergies (01/07/2017) Latex: No Latex Allergies Food Allergies: none Environmental Allergies: none OBSTETRICAL HISTORY EDC: 07/03/2017 00:00 : 7 Para: 4 Term: 4 : 0 SAB: 2 IAB: 0 Ectopic: 1 Livin Cesareans: 0 VBACs: 0 Multiple Births: 0 Gestational Diabetes: No Rh Sensitization: No Incompetent Cervix: No RICHAR: No Infertility: No ART Treatment: No Uterine Anomaly: No IUGR: No Hx Previous C/S: No Macrosomia: No Hx Loss/Stillborn: No PIH: No Hx : No Placenta Previa/Abruption: No Depression/PP Depression: No PTL/PROM: No Post Hemorrhage: Yes Current Procedures: NST Obstetrical History Comments: post hemorrhage first 3 deliveries. 4th delivery patient was given prophylactic treament SEE RECORDS Alcohol: No Marijuana : No Cocaine: No Other Illicit Drugs: No Cigarettes: Never Smoker. [id number] MEDICAL HISTORY Diabetes: No Blood Transfusion: No Pulmonary Disease (Asthma, TB): No Breast Disease: No Hypertension: No Roll Over Press Operator Surgery: No Heart Disease: No Hosp/Surgery: Yes Autoimmune Disorder: No Anesthetic Complications: No Kidney Disease: Yes Abnormal Pap Smear: No Neuro/Epilepsy: No Psychiatric Disorders: No Other Medical Diseases: No Hepatitis/Liver Disease: No Significant Family History: No Varicosities/Phlebitis: No Trauma/Violence : No Thyroid Dysfunction: No Medical History Comments: Hospitalized x4 deliveries, 1x for ectopic . Hx of kidney disorder at age 3, resolved with outpatient surgery at same age. INFECTIOUS HISTORY Gonorrhea: No Genital Herpes: No Chlamydia: No Tuberculosis: No Syphilis: No Hepatitis: No HIV/AIDS Exposure: No Rash or Viral Illness: No HPV: No PHYSICAL EXAM General: Normal HEENT: Normal Neurologic: Normal Thyroid: Normal Heart: Normal Lungs: Normal Breast: Normal Back: Normal Abdomen: Normal Genitourinary Exam: Normal Extremities: Normal DTRs: Normal Pelvic Type: Adequate Physical Exam Comments: bedside sono showed pratima breech presentation with post -fundal placenta pt had some bleeding while on l and d associated with cramping, abdomen nontender no pooling and fern neg VAGINAL EXAM Dilatation: 1 Effacement: 50 Station: -3 FETUS A EGA: 36.6 FHR Category: Category I Admit Comment: Discussed r/b/a of ecv and pt requested epidural for this. If nonreassuring fhts or labor ensues and not vertex, pt requests btl with PLANS FOR LABOR AND DELIVERY Labor and Delivery: None Pain Management: Epidural Feeding Preference: Breast Benefit of Breast Feed Discussed: Yes Circumcision: N/A INFORMED CONSENT Signature: with User ID: [email or web address]
[2017-06-26] MEDS: KETOROLAC TROMETHAMINE INJ/PF 30 MG/1 ML SDV IV SCH (16:58)
[2017-06-27] MEDS: KETOROLAC TROMETHAMINE INJ/PF 30 MG/1 ML SDV IV SCH (01:30)
[2017-06-27 06:36] LABS: HEMATOCRIT 36.2 % (36.0-47.0); HEMOGLOBIN 12.1 g/dL (12.0-15.5); HGB HCT DIFFERENCE 0.1; MEAN CORPUSCULAR HEMOGLOBIN 26.5 pg (27.0-33.4); MEAN CORPUSCULAR HGB CONC 33.3 g/dL (32.0-36.0); MEAN CORPUSCULAR VOLUME 80 fl (80-97); RED BLOOD COUNT 4.54 10^6/uL (3.72-5.28); RED CELL DISTRIBUTION WIDTH 31.1 % (11.5-14.0); WHITE BLOOD COUNT 11.6 10^3/uL (4.0-10.5)
[2017-06-27] MEDS: IBUPROFEN 800 MG TABLET PO SCH ×3 (07:28→20:54)
--- NOTE | 2017-06-27 09:25 | PDOC PROGRESS REPORT ---
Subjective-OB Subjective: Post Delivery Day: 37 year old. Denies any needs at this time Doing well, hsb in room, holding baby, pain under comtrol, mod bleeding, eating well, passing gas Physical Exam (OB) Vital Signs: Temp Pulse Resp BP Pulse Ox 97.9 F 76 16 115/67 96 06/27/17 07:42 06/27/17 07:42 06/27/17 07:42 06/27/17 07:42 06/27/17 07:42 Intake & Output 06/26/17 06/27/17 06/28/17 06:59 06:59 06:59 Intake Total 800 Output Total 2400 Balance -1600 - Dressing Removed: No Incision: Well Approximated Closure Type: Surgical Glue - Lochia Lochia Amount: Scant < 10 ml Lochia Color: Rubra/Red - Abdomen Description: Tender, Soft Hernia Present: No Fundal Description: Firm, Midline Fundal Height: u/u - u/2 Objective-Diagnostic Laboratory: 06/27/17 06:17 06/27/17 06:17 WBC 11.6 H RBC 4.54 Hgb 12.1 Hct 36.2 MCV 80 MCH 26.5 L MCHC 33.3 RDW 31.1 H Plt Count 202 Assessment and Plan(PN) - Assessment and Plan (1) Anemia Qualifiers: Anemia type: iron deficiency Is this a current diagnosis for this admission?: Yes (2) Status post repeat low transverse section Is this a current diagnosis for this admission?: Yes - Time Spent with Patient Time with patient: Less than 15 minutes Medications reviewed and adjusted accordingly: Yes - Disposition Anticipated Discharge: Home Within: within 24 hours
[2017-06-27] MEDS: PRENATAL VITAMIN W-O CA NO5/FE FUMARATE/FA CAPSULE PO SCH (09:35)
[2017-06-27] MEDS: DOCUSATE SODIUM 100 MG CAPSULE PO SCH ×2 (09:35→17:53)
[2017-06-27] MEDS: ACETAMINOPHEN 325 MG TABLET PO PRN ×2 (11:05→23:21)
[2017-06-28] MEDS: IBUPROFEN 800 MG TABLET PO SCH ×2 (04:03→08:56)
[2017-06-28] MEDS: ACETAMINOPHEN 325 MG TABLET PO PRN (07:20)
--- NOTE | 2017-06-28 09:10 | PDOC PROGRESS REPORT ---
Subjective-OB Subjective: Post Delivery Day: 37 year old. Denies any needs at this time Doing well, feeling better, ready to go home, hsb at BS, voiding, passing gas, eating well, pain under control Physical Exam (OB) Vital Signs: Temp Pulse Resp BP Pulse Ox 98.4 F 72 16 127/70 H 97 06/28/17 08:19 06/28/17 08:19 06/28/17 08:19 06/28/17 08:19 06/28/17 08:19 Intake & Output 06/27/17 06/28/17 06/29/17 06:59 06:59 06:59 Intake Total 800 500 Output Total 2400 Balance -1600 500 - Dressing Removed: No Incision: Well Approximated Closure Type: Surgical Glue - Lochia Lochia Amount: Small 10-25 ml Lochia Color: Rubra/Red - Abdomen Description: Soft Hernia Present: No Fundal Description: Firm, Midline Fundal Height: u/u - u/2 Objective-Diagnostic Laboratory: 06/27/17 06:17 Assessment and Plan(PN) - Assessment and Plan (1) Status post repeat low transverse section Is this a current diagnosis for this admission?: Yes - Time Spent with Patient Time with patient: Less than 15 minutes Medications reviewed and adjusted accordingly: Yes - Disposition Anticipated Discharge: Home Within: Other - home today
--- NOTE | 2017-06-28 09:13 | PDOC DISCHARGE SUMMARY ---
Final Diagnosis Discharge Date: 06/28/17 - Final Diagnosis (1) Status post repeat low transverse section Is this a current diagnosis for this admission?: Yes Discharge Data - Discharge Medication Home Medications: Omeprazole Magnesium [Prilosec Otc] 20 mg PO DAILY 06/11/17 Feraheme Infusion 1 dose IV ASDIR PRN 06/20/17 Iron 2 tab PO DAILY 06/20/17 Pnv No.95/Ferrous Fum/Folic AC [ Vitamins Tablet] 1 each PO DAILY Oxycodone HCl/Acetaminophen [Percocet 5-325 mg Tablet] 1 tab PO Q4HP PRN #30 tablet 06/28/17 Gestational Age: 39 Reason(s) for Admission: Ceasarean Section-Repeat Procedures: NST, Ultrasound Intrapartum Procedure(s): : Low Cervical, Transverse, Tubal Ligation - [place] Data Baby 1 Home with Mother: Yes Complications: No - Diagnosis Test Laboratory: Temp Pulse Resp BP Pulse Ox 98.4 F 72 16 127/70 H 97 06/28/17 08:19 06/28/17 08:19 06/28/17 08:19 06/28/17 08:19 06/28/17 08:19 06/24/17 06/24/17 06/27/17 10:12 10:20 06:17 RBC 4.41 4.54 Hgb 11.4 L 12.1 Hct 34.7 L 36.2 Urine Opiates Screen NEGATIVE - Discharge information/Instructions Discharge Activity: Activity As Tolerated, No Lifting Over 10 Pounds, No Lifting /Push/Pulling, Pelvic Rest Discharge Diet: As Tolerated, Regular Disposition: HOME, SELF-CARE Follow up with: [facility] in: Weeks
[2017-06-28] MEDS ORDERED: INFLUENZA ADLT QUAD (36MOS+) 2017-18 VAC 0.5 ML SYR IM PRN (09:24)
[2017-06-28] MEDS: DOCUSATE SODIUM 100 MG CAPSULE PO SCH (09:50)
[2017-06-28] MEDS: PRENATAL VITAMIN W-O CA NO5/FE FUMARATE/FA CAPSULE PO SCH (09:50)
[2017-06-28 12:07] VITALS: BP 138/90
== END 2017-06-28 12:50 | disposition home or self-care (01) | DRG 766 ==
LOC: 2N 05:00
PROVIDERS: ADMIT Obstetrics & Gynecology; ATTEND Obstetrics & Gynecology
PROC: 4A1HXCZ Monitoring of Products of Conception, Cardiac Rate, External Approach (ICD-10-PCS; 2017-06-26)
PROC: 10907ZC Drainage of Amniotic Fluid, Therapeutic from Products of Conception, Via Natural or Artificial Opening (ICD-10-PCS; 2017-06-26)
PROC: 10D00Z1 Extraction of Products of Conception, Low, Open Approach (ICD-10-PCS; principal; 2017-06-26 07:45)
DX: O64.1XX0 Obstructed labor due to breech presentation, not applicable or unspecified (principal); Z37.0 Single live birth; Z3A.39 39 weeks gestation of pregnancy; Z30.2 Encounter for sterilization; Z88.0 Allergy status to penicillin
CPT/HCPCS: 1961; 36415; 59025; 80307; 81001; 85025; 85027; 86850; 86900; 86901; 90686; 90715; 94799; C1765; J0131; J1885; J2175; J2250; J2300; J2405; J2550; J2590; J3010; J3490; J7120